=== PATIENT | female | born 1985 | race African-American/Black ===

== ENCOUNTER 2017-07-01 16:57 | Emergency (ER) | payer MEDICAID ==
[~2017-07-01] VITALS: Ht 160 cm; Wt 87.2 kg
[~2017-07-01 16:57] MED LIST: CIPR500T3 PO; HYDR-3237 PO; IBUP200T48 PO; OXYC-302 PO
[2017-07-01] MEDS ORDERED: DIPHENHYDRAMINE 50 MG/ML, 1ML ONE (17:24)
[2017-07-01] MEDS ORDERED: PROCHLORPERAZINE 5 MG/ML, 2ML ONE (17:24)
[2017-07-01] MEDS ORDERED: DIPHENHYDRAMINE 50 MG/ML, 1ML IVPush ONE (17:30)
[2017-07-01] MEDS ORDERED: PROCHLORPERAZINE 5 MG/ML, 2ML IVPush ONE (17:30)
[2017-07-01] MEDS ORDERED: SODIUM CHLORIDE 0.9% 1,000ML IVBOLUS ONE (17:30)
[2017-07-01 19:30] VITALS: BP 112/80
== END 2017-07-01 19:43 | disposition home or self-care (01) ==
LOC: ED 19:42
DX: G43.C1 Periodic headache syndromes in child or adult, intractable (principal)
CPT/HCPCS: 70450; 96361; 96374; 96375; 99284; J0780; J1200; J7030

== ENCOUNTER 2017-07-31 00:13 | Emergency (ER) | payer MEDICAID ==
[~2017-07-31] VITALS: Ht 160 cm; Wt 90.1 kg
[2017-07-31 00:18] VITALS: BP 124/89
[2017-07-31] MEDS ORDERED: DIPHENHYDRAMINE 25 MG CAPSULE PO ONE (01:00)
[2017-07-31] MEDS ORDERED: KETOROLAC 30 MG/1 ML IM ONE (01:00)
[2017-07-31] MEDS ORDERED: DEXAMETHASONE 4 MG TABLET PO ONE (01:00)
[2017-07-31] MEDS ORDERED: PROCHLORPERAZINE 5 MG/ML, 2ML IM ONE (01:00)
[2017-07-31] MEDS ORDERED: DIPHENHYDRAMINE 50 MG CAPSULE ONE (01:13)
[2017-07-31] MEDS ORDERED: KETOROLAC 30 MG/1 ML ONE (01:13)
[2017-07-31] MEDS ORDERED: PROCHLORPERAZINE 5 MG/ML, 2ML ONE (01:13)
[2017-07-31] MEDS ORDERED: DEXAMETHASONE 4 MG/ML, 5ML ONE (01:13)
== END 2017-07-31 01:34 | disposition home or self-care (01) ==
LOC: ED 01:00
DX: R51 Headache (principal); H57.11 Ocular pain, right eye; Z88.1 Allergy status to other antibiotic agents; G43.909 Migraine, unspecified, not intractable, without status migrainosus
CPT/HCPCS: 96372; 99284; J0780; J1885; Q0163